=== PATIENT | male | born 1960 | race Caucasian/White ===

== ENCOUNTER 2020-01-15 17:45 | Emergency (ER) | payer SELFPAY ==
[2020-01-15] MEDS ORDERED: Azithromycin 250 MG Tab PO ONE (19:20)
--- NOTE | 2020-01-15 19:24 | EDM.PDOC ---
ED HPI GENERAL MEDICAL PROBLEM - General Chief Complaint: Fever Stated Complaint: FEVER AND HEADACHE AND CONGESTION Time Seen by Provider: 01/15/20 18:13 Source of Information: Reports: Patient, RN Notes Reviewed - History of Present Illness INITIAL COMMENTS - FREE TEXT/NARRATIVE: 59 yr old male with fever, chills, cough, tiffany that started 2 or 3 days ago. Feels achy, low energy yesterday, spent most of yesterday in bed, today somewhat better. Did get a flu shot last fall. Does not smoke. Headache Pain Score (Numeric/FACES): 2 - Related Data Allergies Allergy/AdvReac Type Severity Reaction Status Date / Time No Known Allergies Allergy Verified 01/15/20 18:00 Home Meds: Home Meds Aspirin [Halfprin] 81 mg PO DAILY 01/15/20 [History] Cyclobenzaprine [Flexeril] 10 mg PO TID PRN 01/15/20 [History] Lisinopril [Zestril] 5 mg PO DAILY 01/15/20 [History] Metoprolol Succinate [Toprol XL 50mg] 50 mg PO BID 01/15/20 [History] Nitroglycerin [Nitrostat] 0.4 mg PO ASDIRECTED PRN 01/15/20 [History] Rosuvastatin Calcium [Crestor] 40 mg PO DAILY 01/15/20 [History] allopurinoL [Zyloprim] 300 mg PO DAILY 01/15/20 [History] traMADol [Ultram] 50 mg PO BID 01/15/20 [History] Past Medical History Cardiovascular History: Reports: High Cholesterol, Hypertension Musculoskeletal History: Reports: Gout, Other (See Below) Other Musculoskeletal History: left torn rotator cuff - Past Surgical History Cardiovascular Surgical History: Reports: Coronary Artery Bypass GI Surgical History: Reports: Appendectomy Musculoskeletal Surgical History: Reports: Knee Replacement Social & Family History - Tobacco Use Smoking Status *Q: Current Every Day Smoker Years of Tobacco use: 35 Packs/Tins Daily: 0.1 - Caffeine Use Caffeine Use: Reports: Coffee - Recreational Drug Use Recreational Drug Use: No ED ROS GENERAL - Review of Systems Review Of Systems: See Below Constitutional: Denies: Fever, Chills, Diaphoresis HEENT: Denies: Rhinitis, Throat Pain Respiratory: Denies: Shortness of Breath Cardiovascular: Denies: Chest Pain GI/Abdominal: Denies: Abdominal Pain, Nausea, Vomiting Musculoskeletal: Denies: Shoulder Pain Skin: Reports: No Symptoms Neurological: Reports: Dizziness, Headache ED EXAM, GENERAL - Physical Exam Exam: See Below General Appearance: Alert, Mild Distress Eye Exam: Bilateral Eye: PERRL Nose: Normal Inspection Throat/Mouth: Normal Inspection, Normal Oropharynx Head: Atraumatic Neck: Supple Respiratory/Chest: No Respiratory Distress, Lungs Clear, Normal Breath Sounds. No: Rales, Rhonchi, Wheezing Cardiovascular: Tachycardia GI/Abdominal: Soft, Non-Tender Extremities: Normal Inspection, Normal Range of Motion. No: Pedal Edema, Leg Pain Skin Exam: Warm, Dry, Normal Color Course - Vital Signs Last Recorded V/S: Last Vital Signs Temp 98.5 F 01/15/20 17:57 Pulse 113 H 01/15/20 17:57 Resp 16 01/15/20 17:57 BP 141/111 H 01/15/20 17:57 Pulse Ox 94 L 01/15/20 17:57 - Orders/Labs/Meds Meds: Medications Discontinued Medications Generic Name Dose Route Start Last Admin Trade Name Yamini PRN Reason Stop Dose Admin Azithromycin 500 mg 01/15/20 19:20 01/15/20 19:35 Zithromax PO 01/15/20 19:21 500 mg ONETIME ONE Administration - Re-Assessments/Exams Free Text/Narrative Re-Assessment/Exam: 01/16/20 18:18 Flu screen positive for A, discharge instr. as documented. Departure - Departure Time of Disposition: 19:21 Disposition: Home, Self-Care 01 Condition: Fair Clinical Impression: Influenza - Discharge Information Instructions: Influenza, Adult, [id number], Community-Acquired Pneumonia, Adult, [id number] Referrals: PCP,Not In Area [Primary Care Provider] - Forms: ED Department Discharge Additional Instructions: You have tested positive for influenza A this evening. Your symptoms certainly are quite suggestive and compatible with that. You also do have a small area of infiltrate left bronchial and lower lung field suggestive for possible walking pneumonia. We have given you Zithromax 500 mg oral antibiotic this evening for that. Fill the Z-Luis prescription tomorrow and continue that as directed 500 mg tomorrow and then 250 mg for the next 4 days. See a medical provider next Monday 5 days from now for recheck. If you are still going to be in [place] call [phone] for appointment at our [facility] medical clinic. Return to ED as needed if symptoms worsening in any way. 01/16/[address] Robles our Radiolgist has read his Xray out "no acute findings " Sepsis Event Note - Evaluation Sepsis Screening Result: No Definite Risk - Focused Exam Date Exam was Performed: 01/16/20 Time Exam was Performed: 18:16
--- NOTE | 2020-01-16 07:30 | CR ---
Chest: Two views of the chest were obtained. Comparison: No prior chest imaging is available. Heart size and mediastinum are normal. Prior sternotomy for CABG is noted. Lungs are clear with no acute parenchymal change. Bony structures appear within normal limits for the patient's age. Impression: 1. Nothing acute is identified on two-view chest x-ray. Diagnostic code #2 This report was dictated in MDT
== END 2020-01-15 19:37 | disposition home or self-care (01) ==
LOC: JD.ED 17:45
DX: J10.1 Influenza due to other identified influenza virus with other respiratory manifestations (principal); F17.210 Nicotine dependence, cigarettes, uncomplicated; M10.9 Gout, unspecified; I10 Essential (primary) hypertension; E78.00 Pure hypercholesterolemia, unspecified; Z79.82 Long term (current) use of aspirin; Z79.899 Other long term (current) drug therapy
CPT/HCPCS: 71046; 87804; 99283; A9270

== ENCOUNTER 2023-03-20 06:19 | Emergency (ER) | payer OTHER ==
[2023-03-20 08:29] LABS: APPEARANCE,URINE CLEAR (Clear); BILIRUBIN,URINE NEGATIVE (Negative); COLOR,URINE YELLOW (Yellow); GLUCOSE,URINE NEGATIVE (Negative); KETONES,URINE NEGATIVE (Negative); LEUKOCYTE ESTERASE,URINE NEGATIVE (Negative); NITRITE,URINE NEGATIVE (Negative); OCCULT BLOOD,URINE NEGATIVE (Negative); PH,URINE 6.5 (5.0-8.0); PROTEIN,URINE NEGATIVE (Negative); UROBILINOGEN,URINE 0.2 (0.2-1.0)
[2023-03-20 08:44] LABS: BASOPHILS ABSOLUTE AUTO 0.03 K/mm3 (0.01-0.08); BASOPHILS PERCENT AUTO 0.3 % (0.1-1.2); EOSINOPHILS ABSOLUTE AUTO 0.07 K/mm3 (0.04-0.54); EOSINOPHILS PERCENT AUTO 0.7 (0.8-7.0); HEMATOCRIT 51.3 % (40.1-51.0); HEMOGLOBIN 17.6 gm/dl (13.7-17.5); IMMATURE GRAN ABSOLUTE AUTO 0.03 K/mm3 (0.00-0.10); IMMATURE GRAN PERCENT AUTO 0.3 % (<=1.0); LYMPHOCYTES ABSOLUTE AUTO 2.61 K/mm3 (1.32-3.57); LYMPHOCYTES PERCENT AUTO 27.7 % (21.8-53.1); MEAN CORPUSCULAR HEMOGLOBIN 29.1 pg (25.7-32.2); MEAN CORPUSCULAR HGB CONC 34.3 g/dl (32.2-35.5); MEAN CORPUSCULAR VOLUME 84.9 fl (79.0-92.2); MEAN PLATELET VOLUME 9.6 fl (9.4-12.3); MONOCYTES ABSOLUTE AUTO 0.78 K/mm3 (0.30-0.82); MONOCYTES PERCENT AUTO 8.3 % (5.3-12.2); NEUTROPHILS ABSOLUTE AUTO 5.89 K/mm3 (1.78-5.38); NEUTROPHILS PERCENT AUTO 62.7 % (34.0-67.9); PLATELET COUNT,PLT 246 K/mm3 (163-337); RED BLOOD CELL COUNT 6.04 M/mm3 (4.63-6.08); WHITE BLOOD CELL COUNT,WBC 9.41 K/mm3 (4.23-9.07)
[2023-03-20 09:04] LABS: A/G RATIO 1.1 (1-2); ALBUMIN 4.1 g/dl (3.4-5.0); ANION GAP 15.5 (5-15); BILIRUBIN TOTAL 0.6 mg/dL (0.2-1.0); BUN/CREATININE RATIO 13.3 (14-18); CALCIUM 9.2 mg/dL (8.5-10.1); CREATININE 0.9 mg/dL (0.7-1.3); EST CRCL DRUG DOSING (CG) 76.5 mL/min; POTASSIUM,K 4.5 mEq/L (3.5-5.1); PROTEIN TOTAL,TP 7.8 g/dl (6.4-8.2)
== END 2023-03-20 10:56 | disposition home or self-care (01) ==
LOC: JD.ED 06:19
DX: M54.50 Low back pain, unspecified (principal); R10.32 Left lower quadrant pain; M10.9 Gout, unspecified; Z79.899 Other long term (current) drug therapy; Z79.82 Long term (current) use of aspirin; Z95.1 Presence of aortocoronary bypass graft
CPT/HCPCS: 36415; 76870; 76870-26; 80053; 81003; 85025; 93975; 99284